=== PATIENT | male | born 1970 | race Caucasian/White ===

== ENCOUNTER 2016-08-30 21:30 | Emergency (ER) | payer OTHER ==
[~2016-08-30] VITALS: Ht 185.4 cm; Wt 93.2 kg
[~2016-08-30 21:30] MED LIST: ACYC400T2 PO; ASCO100T11 PO; ASPI-973 PO; IBUP200C PO; LOSA1TAB69 PO; NICO2LOZ47 PO; NICO4GUM7 PO; OMEP40CA36 PO; VARE1TAB21 PO; [UNRECOGNIZED DRUG - CODE] PO
[2016-08-30 21:46] VITALS: BP 150/96; PULSE 71; RESP 16; O2SAT 97
--- NOTE | 2016-08-30 23:15 | ED.REPORT ---
HPI-Extremity Problem Upper Date of Service Aug 30, 2016 ED Provider: Dr. Royal Stanley MD A 45 year old male with a history of hypertension and heroin abuse presents to the ED with a left thumb injury that occurred jut prior to arrival. Patient was reportedly closing a door handle when his finger was caught in between the opening. Associated symptoms include left handed pain and swelling. Patient is currently expressing concern about a fracture. He denies any other injuries at this time. He denies any numbness or weakness in the hand. Nursing Notes Stated Complaint: LEFT THUMB INJURY Chief Complaint: Extremity Trauma Nursing Notes Reviewed: Yes Allergies: Coded Allergies: No Known Drug Allergies (Verified Allergy, Unknown, 05/01/16) Scheduled Acyclovir (Acyclovir) 400 Mg Tablet 400 MG PO BID Aspirin (Aspirin) 81 Mg Tablet 81 MG PO DAILY Losartan/HCTZ 50-12.5 mg (Losartan/HCTZ 50-12.5 mg) 1 Each Tablet 1 TABLET PO DAILY Omeprazole (Omeprazole) 40 Mg Capsule.dr 40 MG PO BID Scheduled PRN Ibuprofen (Ibuprofen) 200 Mg Capsule 200 MG PO QID PRN PRN For Pain Nicotine Polacrilex (Nicorette) 2 Mg Lozenge 2 MG PO PRN PRN PRN For Tobacco Withdrawal Nicotine Polacrilex (Nicorette) 4 Mg Gum 4 MG PO PRN PRN PRN For Tobacco Withdrawal Miscellaneous Medications Ascorbic Acid (Vitamin C) 100 Mg Tablet 100 MG PO Ribavirin (Ribasphere) 600 Mg Tablet 600 MG PO Varenicline Tartrate (Chantix) 1 Each Tab.ds.pk 1 EACH PO General Time Seen by MD: 23:15 Chief Complaint Finger injury left 1 Hx Obtained From: Patient Arrived By: Walk-in Onset Occurred: Just prior to arrival Symptom Duration: Since onset Caused by: Accidental Location: : Finger left 1 Quality: Painful Severity: Current: Moderate Severity: Maximum: Moderate Associated with: Denies: Numb extremities Pertinent Negative: Pt denies other symptoms Recent Healthcare: No recent doctor visit, No recent hospitalization Past Medical History Past Medical History Hypertension GERD Anxiety Hx of heroin abuse Past Surgical History Endoscopy Smoking History Current Every Day Smoker Social History Drug Use: IV drugs Other Social History: Local resident Ambulatory Status Independent Review of Systems Musculoskeletal: Reports: Joint pain (left thumb pain), Joint swelling (left thumb swelling), Denies: Extremity pain, Extremity swelling Neurologic: Denies: Numbness, Weakness Complete sys rev & neg: except as marked. Physical Exam Initial Vital Signs Vital Signs (First) Date Time Temp Pulse Resp B/P Pulse Ox O2 Delivery O2 Flow Rate FiO2 08/30/16 21:46 71 16 150/96 97 Room Air Initial VS: Reviewed Head / Eyes: Atraumatic, Normocephalic, PERRL Neck: Supple, Non-tender, Full range of motion Lower Extremities: Vascular intact, Neuro intact, No swelling, No tenderness Skin: Warm, Dry, No cyanosis Neurologic: Alert, Oriented, Nonfocal Psychiatric: Mood/affect normal, Behavior normal, Normal thought content General/Constitutional: Awake, Alert, No acute distress Respiratory / Chest: Atraumatic, No respiratory distress Upper Extremity / MS: Atraumatic, Inspection NL, Neurologic intact, Vascular intact Wrist / Hand: Atraumatic, Neurologic intact, Vascular intact Left Thumb: Positive: Swelling present..., Tenderness present... Trauma / Burn / Environmental: Positive: Hematoma (subungual hematoma) Interpretation & Diagnostics X-Ray Interpretation Xray Interpretation: IMPRESSION: Fracture of the 1st phalange X-Ray Ordered: Hand left Interpretation / Wet Read by: Wet read ED physician Procedures Digital Nerve Block Time: 23:46 Procedure Performed by: ED physician Consent / Setup / Site Prep: Consent from patient, Time-out performed, Hand hygiene observed, Stand sterile technique Digit Involved: Thumb left Digital Block Procedure: Lidocaine 1% Post-Procedure / Complications: Antibiotic oint applied, Dressing applied, No complications, Condition improved, Tolerated procedure well, Patient stable Re-Eval/Medical Decision Med Decision/Clinical Course Digital block followed by cautery nail trephination. Significant relief of pain. We will immobilize his thumb and refer orthopedics for follow-up. Re-Evaluation/Progress : Time of Eval: 23:38 Patient Status: Condition improved Re-Evaluation/Progress Note: Patient is rechecked. He tolerates the digital block well. He is informed of her X-ray results and diagnosis. All of the patient's questions are addressed. She understands and agrees with the treatment plan. Counseled Regarding: Diagnosis, Need for follow-up, When/why to return to ED Discharge & Departure Impression: Primary Impression: Fracture of thumb, left, closed Encounter type: initial encounter Phalanx: unspecified phalanx Fracture alignment: nondisplaced Qualified Code: S62.502A - Fracture of unspecified phalanx of left thumb, initial encounter for closed fracture Additional Impressions: Hematoma, subungual, thumb, left Encounter type: initial encounter Qualified Code: S60.112A - Contusion of left thumb with damage to nail, initial encounter Phalanx, distal fracture of finger Encounter type: initial encounter Finger: unspecified finger Fracture type : closed Disposition: Home Discharge Condition All VS Reviewed: Yes Condition: Improved Patient Instructions: Finger Fracture (ED), Splint Care (ED) Additional Instructions: Thank you for trusting us with your care this evening. Your X-ray results revealed a fracture to your thumb. Please keep the thumb in a splint for the next 7-10 days until you are able to schedule a follow up appointment with the orthopedic surgeon for a recheck. See referral to orthopedics. Please take Motrin as directed for pain. Please return to the ED if you begin to experience any new or worsening symptoms. Referrals: Swetha Owen (PCP) Chase Sarabia MD Attestation Portions of this note were transcribed by Bryan Murdock. I, Dr. Stanley personally performed the history, physical exam and medical decision-making; I reviewed and confirmed the accuracy of the information in the transcribed note. Signed by: Ladarius Almanza, 08/31/16 0050. copies to: Swetha Owen Todd P DO Aug 30, 2016 23:15 BRYAN MURDOCK Aug 30, 2016 23:37
--- NOTE | 2016-08-31 08:36 | DRSVH ---
PROCEDURE: X-RAY FINGERS, TWO VIEWS INDICATIONS: left thumb shut in car door. TECHNIQUE: AP hand, 2 views of the first finger(s) acquired. COMPARISON: None. FINDINGS: Bones: Minimally displaced fracture involving the first distal phalanx. Soft tissue swelling present . Soft tissues: No suspicious soft tissue calcifications. IMPRESSION: Tuft fracture of the first distal phalanx. Dictated by: Lorenzo WALKER Interpreted: Lisa Cid MD on 08/31/2016 at 8:34 Transcribed by: CHANDA on 08/31/2016 at 8:35 Approved by: Lisa Cid MD, PhD on 08/31/2016 at 8:46
== END 2016-08-31 00:25 | disposition home or self-care (01) ==
LOC: SED 21:30
DX: S62.522A Displaced fracture of distal phalanx of left thumb, initial encounter for closed fracture (principal); S60.112A Contusion of left thumb with damage to nail, initial encounter; W23.0XXA Caught, crushed, jammed, or pinched between moving objects, initial encounter; Y93.89 Activity, other specified; Y92.89 Other specified places as the place of occurrence of the external cause; Y99.8 Other external cause status; I10 Essential (primary) hypertension; K21.9 Gastro-esophageal reflux disease without esophagitis; F17.200 Nicotine dependence, unspecified, uncomplicated; Z79.82 Long term (current) use of aspirin